=== PATIENT | female | born 1940 | race Caucasian/White ===

== ENCOUNTER 2020-06-24 20:34 | Emergency (ER) | payer MEDICARE, OTHER ==
[2020-06-24 22:59] LABS: BASOPHIL 0.1 % (0-2); EOSINOPHIL 0 % (0-7); HGB 12.2 g/dl (12.5-16.0); LYMPHOCYTE 6.8 % (15-48); MCHC 30.5 g/dL (32.0-36.0); MCV 85.3 fL (78.0-100.0); MONOCYTE 4.1 % (0-12); MPV 11.5 fL (6.0-9.5); NEUTROPHIL 88.5 % (41-80); NRBC 0; PLT 266 K/uL (150-400); RBC 4.69 M/uL (4.20-5.40); RDW 16.5 % (11.5-14.0); WBC 8.5 K/uL (4.0-10.5)
[2020-06-24 23:20] LABS: ALBUMIN 3.3 g/dL (3.4-5.0); BILIRUBIN - TOTAL 0.3 mg/dL (0.2-1.0); BUN/CREAT RATIO (CALC) 23.1 RATIO; CREATININE 0.91 mg/dL (0.51-0.95); GLOBULIN (CALCULATION) 3.3 g/dL; POTASSIUM 4.6 mmol/L (3.5-5.1); TOTAL PROTEIN 6.6 g/dL (6.4-8.2)
[2020-06-24 23:51] LABS: BILIRUBIN NEGATIVE (NEGATIVE); BLOOD TRACE-INTACT Ery/uL (NEGATIVE); CLARITY CLEAR (CLEAR); COLOR YELLOW (YELLOW); GLUCOSE (U) 3+ mg/dL (NORMAL); LEUKOCYTES NEGATIVE Leu/uL (NEGATIVE); NITRITE NEGATIVE (NEGATIVE); PROTEIN NEGATIVE (NEGATIVE); UROBILINOGEN 0.2 mg/dL (0.2-1.0)
[2020-06-24 23:54] LABS: BACTERIA TRACE; SQUAMOUS EPITHELIAL CELLS RARE; URINARY RBC RARE; URINARY WBC RARE
== END 2020-06-25 00:15 | disposition home or self-care (01) ==
LOC: FER 20:34
PROVIDERS: Emergency Medicine
DX: E11.65 Type 2 diabetes mellitus with hyperglycemia (principal); I48.91 Unspecified atrial fibrillation
CPT/HCPCS: 36415; 80053; 81001; 84145; 85025; 93005; J7030